=== PATIENT | female | born 1995 | race African-American/Black ===

== ENCOUNTER 2016-06-13 12:29 | Emergency (ER) | payer BC ==
[~2016-06-13] VITALS: Ht 157.5 cm; Wt 61.1 kg
[~2016-06-13 12:29] MED LIST: BCPILLS PO; PRLSR20 PO; RANI300T2 PO
[2016-06-13 12:44] VITALS: Ht 157.5 cm; Wt 61.1 kg
[2016-06-13] MEDS ORDERED: GI COCKTAIL PO STA (15:06)
[2016-06-13] MEDS ORDERED: SODIUM CHLORIDE 0.9% 1000ML 1,000 ML IV STA (15:10)
[2016-06-13] MEDS ORDERED: ALUMINUM/MAGNESIUM SUSP 30 ML UDC ONE (15:26)
[2016-06-13] MEDS ORDERED: LIDOCAINE HCL 2% VISC SOLN 20 ML UDC ONE (15:26)
[2016-06-13 15:28] LABS: BASO % 0.3 %; BASO ABS # 0.05 K/uL (0-0.2); COMPLETE YES; EOS % 0.4 %; HEMATOCRIT 42.5 % (37-47); IG% 0.4 %; LYMPH % 10.1 %; LYMPH ABS # 1.95 K/uL (1.2-3.4); MEAN CELL VOLUME 84.7 fL (80-100); MEAN CORPUSCULAR HEMOGLOBIN 28.9 pg (25-34); MEAN CORPUSCULAR HGB CONC 34.1 g/dl (32-36); MEAN PLATELET VOLUME 10.4 fL (7.4-10.4); MONO % 6.9 %; NEUT % 81.9 %; PLATELET COUNT 305 K/uL (130-400); RED BLOOD COUNT 5.02 M/uL (4.2-5.4); WHITE BLOOD COUNT 19.25 K/uL (4.8-10.8)
[2016-06-13 15:30] LABS: URINE APPEARANCE CLEAR (CLEAR); URINE BILIRUBIN NEG (NEG); URINE COLOR YELLOW; URINE NITRITE NEG (NEG); URINE PH 6.5 (4.5-7.5); URINE SPECIFIC GRAVITY 1.004 (1.000-1.030); UROBILINOGEN NEG (NEG); ZZUR CULT IF INDIC CLEAN CATCH NO
[2016-06-13 15:33] LABS: MANUAL MICROSCOPIC REQUIRED? NO; REVIEW REQ? NO
[2016-06-13 15:44] LABS: BUN/CREATININE RATIO 4.6 (10-20); CALCIUM 8.9 mg/dl (8.5-10.1); CREATININE 0.81 mg/dl (0.60-1.20); POTASSIUM 3.8 mmol/L (3.5-5.1)
[2016-06-13 15:47] LABS: ALB/GLOB RATIO 0.8 (0.9-2)
--- NOTE | 2016-06-13 15:52 | DIAGNOSTIC IMAGING REPORT ---
ABDOMEN 2VIEW W/PA CHEST RTN CLINICAL HISTORY: epigastric abdominal pain COMPARISON STUDY: January 20, 2014 FINDINGS: The erect chest reveals no evidence of free air. There is no evidence of focal pulmonary consolidation.] Erect and supine views of the abdomen reveal no abnormally dilated loops of large or small bowel. There are no transition zone to indicate bowel obstruction. IMPRESSION: No evidence of bowel obstruction. No evidence of free air. Electronically signed by: Joss Rodriguez M.D. 06/13/2016 3:50 PM Dictated Date/Time: 06/13/2016 3:50 PM
[2016-06-13] MEDS ORDERED: CETI10TA84 PO (16:06)
[2016-06-13] MEDS ORDERED: OPTIRAY 320 IV PRN (16:15)
[2016-06-13 16:30] VITALS: TEMP 37.4
--- NOTE | 2016-06-13 16:48 | DIAGNOSTIC IMAGING REPORT ---
ABDOMEN AND PELVIS CT WITH IV CONTRAST CT DOSE: 306.48 mGycm HISTORY: Pain epigastric abdominal pain, leukocytosis TECHNIQUE: Multiaxial CT images of the abdomen and pelvis were performed following the use of intravenous contrast. COMPARISON STUDY: None. FINDINGS: The lung bases are clear. The liver, spleen, gallbladder, pancreas, kidneys, and adrenal glands are within normal limits. No bowel wall thickening or obstruction. The pelvic organs are unremarkable. No suspicious lytic or blastic osseous lesions. IMPRESSION: No significant abnormality identified within the abdomen or pelvis. Electronically signed by: Geovanni Desouza M.D. 06/13/2016 4:46 PM Dictated Date/Time: 06/13/2016 4:43 PM
[2016-06-13] MEDS ORDERED: MoRPHine SULFATE 4 MG/ML 1 ML CARP\\VIAL IV STA (17:19)
[2016-06-13] MEDS ORDERED: ONDANSETRON INJ 2 MG/ML 2 ML VIAL IV STA (17:19)
[2016-06-13] MEDS ORDERED: HYDR-5688 PO (17:48)
--- NOTE | 2016-06-13 17:50 | EMERGENCY ROOM VISIT NOTE ---
History First contact with patient: 14:57 Chief Complaint: ABDOMINAL PAIN Stated Complaint: SHARP STOMACH PAIN, SWEATING, COUGHING History of Present Illness The patient is a 20 year old female who presents to the Emergency Room with complaints of sharp abdominal pains beginning last night. The patient reports that for the last few months, she has had a persistent cough at night, fullness after eating, and nausea. She was seen one week ago at [facility] and referred to the [facility] physicians group. She saw them and was prescribed Prilosec and Zantac, which she has been taking for approximately one week. She states she is scheduled for an upper endoscopy at the end of this week.. She reports that last night, she developed a sharp pain in her upper abdomen. She has had occasional vomiting, but not over the past one day. She rates her discomfort an 8/10. She states her bowel movements have been normal. The patient has a history of an appendectomy. She does report a history of occasional constipation. The patient denies any urinary symptoms, vaginal bleeding, vaginal discharge, fevers/chills, chest pain or shortness of breath. Review of Systems A complete 10-point Review of Systems was discussed with the patient, with pertinent positives and negatives listed in the History of Present Illness. All remaining Review of Systems questions can be considered negative unless otherwise specified. Past Medical/Surgical History Surgical Problems: (1) H/O wisdom tooth extraction Family History Cancer Diabetes mellitus Hypertension Social History Smoking Status: Never Smoker Alcohol Use: none Occupation Status: [employer] student Current/Historical Medications Scheduled Control Pills ( Control Pills), 1 TAB PO QPM Omeprazole (Prilosec), 20 MG PO QAM Ranitidine Hcl (Zantac), 300 MG PO HS Scheduled PRN Cetirizine (Zyrtec), 10 MG PO DAILY PRN for ALLERGIC REACTION Hydrocodone/Acetaminophen 5MG/325MG ([place] 5MG/325MG), 1-2 TABLET PO Q4H PRN for Pain Allergies Coded Allergies: No Known Allergies (Unverified , 06/09/16) Physical Exam Vital Signs Date Time Temp Pulse Resp B/P Pulse Ox O2 Delivery O2 Flow Rate FiO2 06/13/16 18:05 80 18 127/82 97 06/13/16 17:38 80 18 127/82 97 Room Air 06/13/16 16:30 37.4 90 18 140/85 98 Room Air 06/13/16 15:05 92 18 135/83 98 Room Air 06/13/16 12:44 37.4 87 18 149/88 98 Room Air Physical Exam VITALS: Vitals are noted on the nurse's note and reviewed by myself. Vital signs stable. GENERAL: This is a 20-year-old female, in no acute distress, nondiaphoretic, well-developed well-nourished. SKIN: Capillary reflex less than 2 seconds. HEENT: Normocephalic. PERRLA. EOMI. Nares patent. Mucous membranes moist. Neck is supple without nuchal rigidity. HEART: Regular rate and rhythm without murmurs gallops or rubs. LUNGS: Clear to auscultation bilaterally without wheezes, rales or rhonchi. No retractions or accessory muscle use. ABDOMEN: Positive bowel sounds x 4. Soft, nondistended with mild tenderness of the epigastric region and mid abdomen. PELVIC: Small amount of whitish vaginal discharge within the vaginal wall. No evidence of cervicitis. No cervical motion tenderness. NEURO: Patient was alert and oriented to person place and time. Medical Decision & Procedures ER Provider Diagnostic Interpretation: ABDOMEN 2VIEW W/PA CHEST RTN FINDINGS: The erect chest reveals no evidence of free air. There is no evidence of focal pulmonary consolidation.] Erect and supine views of the abdomen reveal no abnormally dilated loops of large or small bowel. There are no transition zone to indicate bowel obstruction. IMPRESSION: No evidence of bowel obstruction. No evidence of free air. ABDOMEN AND PELVIS CT WITH IV CONTRAST FINDINGS: The lung bases are clear. The liver, spleen, gallbladder, pancreas, kidneys, and adrenal glands are within normal limits. No bowel wall thickening or obstruction. The pelvic organs are unremarkable. No suspicious lytic or blastic osseous lesions. IMPRESSION: No significant abnormality identified within the abdomen or pelvis. Laboratory Results 06/13/16 15:10 Red Blood Count 5.02, Mean Corpuscular Volume 84.7, Mean Corpuscular Hemoglobin 28.9, Mean Corpuscular Hemoglobin Concent 34.1, Mean Platelet Volume 10.4, Neutrophils (%) (Auto) 81.9, Lymphocytes (%) (Auto) 10.1, Monocytes (%) (Auto) 6.9, Eosinophils (%) (Auto) 0.4, Basophils (%) (Auto) 0.3, Neutrophils # (Auto) 15.78, Lymphocytes # (Auto) 1.95, Monocytes # (Auto) 1.32, Eosinophils # (Auto) 0.07, Basophils # (Auto) 0.05 06/13/16 15:10 Test 06/13/16 15:00 06/13/16 15:10 06/13/16 17:45 Urine Color YELLOW Urine Appearance CLEAR (CLEAR) Urine pH 6.5 (4.5-7.5) Urine Specific [place] 1.004 (1.000-1.030) Urine Protein NEG (NEG) Urine Glucose (UA) NEG (NEG) Urine Ketones NEG (NEG) Urine Occult Blood NEG (NEG) Urine Nitrite NEG (NEG) Urine Bilirubin NEG (NEG) Urine Urobilinogen NEG (NEG) Urine Leukocyte Esterase NEG (NEG) Urine Test NEG (NEG) White Blood Count 19.25 K/uL (4.8-10.8) Red Blood Count 5.02 M/uL (4.2-5.4) Hemoglobin 14.5 g/dL (12.0-16.0) Hematocrit 42.5 % (37-47) Mean Corpuscular Volume 84.7 fL (80-100) Mean Corpuscular Hemoglobin 28.9 pg (25-34) Mean Corpuscular Hemoglobin Concent 34.1 g/dl (32-36) Platelet Count 305 K/uL (130-400) Mean Platelet Volume 10.4 fL (7.4-10.4) Neutrophils (%) (Auto) 81.9 % Lymphocytes (%) (Auto) 10.1 % Monocytes (%) (Auto) 6.9 % Eosinophils (%) (Auto) 0.4 % Basophils (%) (Auto) 0.3 % Neutrophils # (Auto) 15.78 K/uL (1.4-6.5) Lymphocytes # (Auto) 1.95 K/uL (1.2-3.4) Monocytes # (Auto) 1.32 K/uL (0.11-0.59) Eosinophils # (Auto) 0.07 K/uL (0-0.5) Basophils # (Auto) 0.05 K/uL (0-0.2) RDW Standard Deviation 42.5 fL (36.4-46.3) RDW Coefficient of Variation 13.8 % (11.5-14.5) Immature Granulocyte % (Auto) 0.4 % Immature Granulocyte # (Auto) 0.08 K/uL (0.00-0.02) Anion Gap 10.0 mmol/L (3-11) Est Creatinine Clear Calc Drug Dose 94.5 ml/min Estimated GFR () 120.3 Estimated GFR (Non- 103.8 BUN/Creatinine Ratio 4.6 (10-20) Calcium Level 8.9 mg/dl (8.5-10.1) Total Bilirubin 0.8 mg/dl (0.2-1) Aspartate Amino Transf (AST/SGOT) 13 U/L (15-37) Alanine Aminotransferase (ALT/SGPT) 15 U/L (12-78) Alkaline Phosphatase 84 U/L (45-117) Total Protein 8.1 gm/dl (6.4-8.2) Albumin 3.5 gm/dl (3.4-5.0) Globulin 4.6 gm/dl (2.5-4.0) Albumin/Globulin Ratio 0.8 (0.9-2) Lipase 145 U/L (73-393) Date/Time Source Procedure Growth Status 06/13/16 17:45 Vaginal Swab Trichomonas Preparation - Final Complete Medications Administered Medications (Trade) Dose Ordered Sig/Juan Manuel Route Start Time Stop Time Status Last Admin Dose Admin Miscellaneous Medication 24 ml 24 ml NOW STAT PO 06/13/16 15:06 06/13/16 15:09 DC 06/13/16 15:32 24 ML Sodium Chloride (Nss 1000ml) 1,000 ml @ 999 mls/hr Q1H1M STAT IV 06/13/16 15:10 06/13/16 16:10 DC 06/13/16 15:21 999 MLS/HR Lidocaine HCl (Viscous Lidocaine 2% Soln) 20 ml STK-MED ONCE .ROUTE 06/13/16 15:26 06/13/16 15:30 DC 06/13/16 15:32 20 ML Al Hydroxide/Mg Hydroxide (Maalox Susp) 30 ml STK-MED ONCE .ROUTE 06/13/16 15:26 06/13/16 15:30 DC 06/13/16 15:32 30 ML Morphine Sulfate (MoRPHine SULFATE INJ) 4 mg NOW STAT IV 06/13/16 17:19 3/27/17 17:21 DC 06/13/16 17:33 4 MG Ondansetron HCl (Zofran Inj) 4 mg NOW STAT IV 06/13/16 17:19 06/13/16 17:21 DC 06/13/16 17:32 4 MG Medical Decision Differential diagnosis includes cholecystitis, pancreatitis, colitis, gastroenteritis, perforated viscus, peptic ulcer disease, PID, urinary tract infection, pyelonephritis, among others. The patient was evaluated as above. Labs were drawn and IV access was obtained. Imaging studies were performed and read by radiology as above. The patient was medicated with 1 L normal saline solution, a GI cocktail and 4 mg morphine IV. The patient was reassessed multiple times during their stay in the emergency department and remained in stable condition. The patient is a 20-year-old female who presents today complaining of abdominal pain. Patient is afebrile. Labs revealed a leukocytosis of 19,000. No anemia or concerning elect avoid abnormalities. Urinalysis was not suggestive of infection. Urine was negative. Abdominal series was unremarkable. Given the patient's continued pain after a GI cocktail and leukocytosis, a CT scan was ordered. CT was performed and showed no acute findings within the abdomen. Pelvic exam was not suggestive of PID. The patient was instructed to continue Prilosec and Zantac. She did have significant relief with the morphine. She was given a short course of [place] to take at home. She was instructed to follow-up with the primary care provider within 48 hours for further evaluation. She was instructed to keep her appointment for the endoscopy. She will return for worsening of her current condition or any new/ concerning symptoms. Based on the patient's presentation, lab results, and imaging studies, I feel the patient is stable for outpatient treatment. The patient's case was reviewed with Dr. Valdivia, ED attending physician, who agreed with my assessment and treatment plan. Discharge instructions were reviewed with the patient. The patient verbalized understanding of my assessment and treatment plan and was discharged home in good condition. [place] Drug Monitoring Program Search Results: patient reviewed within database, no issues identified Impression Primary Impression: Epigastric abdominal pain Departure Information Dispostion Home / Self-Care Condition GOOD Prescriptions Hydrocodone/Acetaminophen 5MG/325MG ([place] 5MG/325MG) Tab 1-2 TABLET PO Q4H Y for Pain, #15 TAB For Initial Treatment Prov: Kemi Strauss .YOLI 06/13/16 [facility] (PCP) Patient Instructions My [facility] Additional Instructions You have been treated in the Emergency Department your Abdominal Pain. Laboratory results and imaging studies have ruled out any emergent causes for your abdominal pain which would warrant admission or surgery. You have been prescribed [place] to be used for pain control. This is a narcotic medication. You cannot drive or consume alcohol while on this medicine. This medicine should only be used for pain that cannot be controlled with over-the- counter pain medicines. Continue your medications as prescribed. For pain control, you can use the following [id number] medicines (if >12 yo): - Regular strength (325mg/tab) Tylenol (acetaminophen) 2 tabs every 4-6 hours as needed. Do not exceed 12 tablets in a 24 hour period. Avoid taking more than 4 grams (4000 mg) of Tylenol per day. This includes any other sources of acetaminophen you may take on a regular basis. Drink plenty of water and stay well hydrated. Call the [facility] physicians group tomorrow to schedule a follow-up within 24 hours. Return to the emergency department if your symptoms persist despite treatment plan outlined above or if the following symptoms occur: increased fevers, chills , worsening nausea/vomiting, blood in your stool or urine.
[2016-06-13 18:05] VITALS: BP 127/82; PULSE 80; O2SAT 97
[2016-06-15 23:03] LABS: CHLAMYDIA TRACH RNA*** NOT DETECTED (NOT DETECTED); GC (NEIS GONORRHOEAE)RNA** NOT DETECTED (NOT DETECTED)
== END 2016-06-13 18:11 | disposition home or self-care (01) ==
LOC: C.EDB 12:31 → C.EDC 18:11
DX: R10.13 Epigastric pain (principal); D72.829 Elevated white blood cell count, unspecified; Z80.9 Family history of malignant neoplasm, unspecified; Z83.3 Family history of diabetes mellitus; Z82.49 Family history of ischemic heart disease and other diseases of the circulatory system

== ENCOUNTER → 2016-06-15 | Day surgery (SDC) | payer BC ==
[2016-06-09 13:16] VITALS: BMI 23.0
[~2016-06-15] VITALS: Ht 160 cm; Wt 59.1 kg
[~2016-06-15] MED LIST changes: +CETI10TA84 PO; +HYDR-5688 PO; +LIDOCAINE HCL 2% 2 ML VIAL (20MG/ML) ONE; +PROPOFOL IV EMULSION 10 MG/ML 20 ML VIAL IV ONE; +SODIUM CHLORIDE 0.9% 500ML 500 ML IV ONE
[2016-06-15 12:15] VITALS: Ht 160 cm; Wt 59.1 kg
[2016-06-15 12:29] VITALS: TEMP 36.5
--- NOTE | 2016-06-15 13:24 | Endo History and Physical ---
History & Physical Date of Service: Jun 15, 2016. Chief Complaint: abd pain, cough, heartburn Referring Physician: [facility] History of Present Illness 20 yo AAF who presents for EGD secondary to abdominal pain, cough and heartburn. Past Surgical History Hx Cardiac Surgery: No Hx Internal Defibrillator: No Hx Pacemaker: No Hx Abdominal Surgery: Yes (APPY) Hx of Implantable Prosthesis: No Hx Post-Op Nausea and Vomiting: No Hx Cancer Surgery: No Hx Thoracic Surgery: No Hx Orthopedic: No Hx Urinary Tract Surgery: No Family History Polyp Social History Smoking Status: Never Smoker Hx Substance Use: No Hx Alcohol Use: Yes (OCCASIONAL/SOCIAL) Allergies Coded Allergies: No Known Allergies (Verified , 06/15/16) Current Medications Reported Home Medications Medications Dose Route/Sig Max Daily Dose Days Date Category Zyrtec (Cetirizine HCl) 10 Mg Tab 10 Mg PO DAILY PRN 06/13/16 Reported Zantac (Ranitidine HCl) 300 Mg Tab 300 Mg PO HS 06/09/16 Reported Prilosec (Omeprazole) 20 Mg Capcr 20 Mg PO QAM 06/09/16 Reported Control Pills (Miscellaneous) Tab 1 Tab PO QPM 04/18/15 Reported Vital Signs Weight (Kilograms): 59.09 Height (Feet): 5 Height (Inches): 3 Date Time Temp Pulse Resp B/P Pulse Ox O2 Delivery O2 Flow Rate FiO2 06/15/16 12:29 36.5 100 20 110/78 96 Room Air Physical Exam General Appearance: WD/WN, no apparent distress Respiratory/Chest: Auscultation: breath sounds normal Cardiovascular: Heart Auscultation: RRR Abdomen: Bowel Sounds: normal Inspection & Palpation: soft, non-distended, no tenderness, guarding & rebound Assessment and Plan Assessment: 20 yo AAF who presents for EGD secondary to abdominal pain, cough and heartburn. Plan: Proceed with EGD
--- NOTE | 2016-06-15 13:39 | Discharge Instructions ---
Endoscopy Patient Instructions Date / Procedure(s) Performed Jun 15, 2016. EGD Allergy Information Coded Allergies: No Known Allergies (Verified , 06/15/16) Discharge Date / Findings Jun 15, 2016. Gastric antrum biopsies Medication Instructions OK to resume all medications today as prescribed Reported Home Medications Medications Dose Route/Sig Max Daily Dose Days Date Category Zyrtec (Cetirizine HCl) 10 Mg Tab 10 Mg PO DAILY PRN 06/13/16 Reported Zantac (Ranitidine HCl) 300 Mg Tab 300 Mg PO HS 06/09/16 Reported Prilosec (Omeprazole) 20 Mg Capcr 20 Mg PO QAM 06/09/16 Reported Control Pills (Miscellaneous) Tab 1 Tab PO QPM 04/18/15 Reported Provider Instructions Activity Restrictions - No exercising or heavy lifting for 24 hours. - Do not drink alcohol the day of the procedure. - Do not drive a car or operate machinery until the day after the procedure. - Do not make any important decisions or sign important papers in 24 hours after the procedure. Following Day: - Return to full activity which may include returning to work/school. Diet Start your diet with liquids and light foods (jello, soup, juice, toast). Then eat your usual diet if not nauseated. Treatment For Common After Affects For mild abdominal pain, bloating, or excessive gas: - Rest - Eat lightly - Lie on right side Follow-Up Information Follow-up with [facility] as scheduled Anesthesia Information What You Should Know You have had a procedure that required some medicine to reduce anxiety and discomfort. This treatment is called moderate sedation. After receiving the treatment, you may be sleepy, but you will be able to breathe on your own. The effects of the treatment may last for several hours. Follow these instructions along with Activity/Diet recommendations noted above: * Do NOT do anything where dizziness or clumsiness would be dangerous. * Rest quietly at home today, then you can be up and about tomorrow. * Have a responsible person stay with you the rest of today. * You may have had an I.V. today. If so, you may take the dressing off later today. Recommendations Call your doctor if: * Trouble breathing * Continuous vomiting for more than 24 hours * Temperature above 101 degrees * Severe abdominal pain or bloating * Pain not relieved by pain medicine ordered * There is increased drainage or redness from any incision * A large amount of rectal bleeding greater than 2-3 tablespoons. (If you had a polyp/s removed or have hemorrhoids, a small amount of blood - from the rectum is to be expected.) * You have any unanswered questions or concerns. IN THE EVENT OF A SERIOUS EMERGENCY, GO TO THE NEAREST EMERGENCY ROOM Your discharge instructions were prepared by provider Jayme Hooker. Patient Instructions Signature Page Maya Crawford Patient (or Guardian) Signature/Date: I have read and understand the instructions given to me by my caregivers. Caregiver/RN/Doctor Signature/Date: The above-named patient and/or guardian has received patient instructions on this date. + Original Patient Signature Page (only) stays with chart. Please make copy for patient.
--- NOTE | 2016-06-15 13:45 | GI REPORT ---
Procedure Date: 06/15/2016 1:22 PM Procedure: Upper GI endoscopy Indications: Epigastric abdominal pain Medicines: Monitored Anesthesia Care Complications: No immediate complications. Estimated Blood Loss: Estimated blood loss: none. Procedure: Pre-Anesthesia Assessment: - Prior to the procedure, a History and Physical was performed, and patient medications and allergies were reviewed. The patient's tolerance of previous anesthesia was also reviewed. The risks and benefits of the procedure and the sedation options and risks were discussed with the patient. All questions were answered, and informed consent was obtained. Prior Anticoagulants: The patient has taken no previous anticoagulant or antiplatelet agents. ASA Grade Assessment: II - A patient with mild systemic disease. After reviewing the risks and benefits, the patient was deemed in satisfactory condition to undergo the procedure. After obtaining informed consent, the endoscope was passed under direct vision. Throughout the procedure, the patient's blood pressure, pulse, and oxygen saturations were monitored continuously. The scope was introduced through the mouth, and advanced to the second part of duodenum. The upper GI endoscopy was accomplished without difficulty. The patient tolerated the procedure well. Findings: The esophagus was normal. The entire examined stomach was normal. Biopsies were taken with a cold forceps for Helicobacter pylori testing. The examined duodenum was normal. Impression: - Normal esophagus. - Normal stomach. Biopsied. - Normal examined duodenum. Recommendation: - Resume previous diet. - Continue present medications. - Await pathology results. - Return to GI clinic as previously scheduled. Jayme Hooker DO 06/15/2016 1:43:56 PM This report has been signed electronically. Note Initiated On: 06/15/2016 1:22 PM I attest to the content of the Intraoperative Record and orders documented therein, exceptions below
--- NOTE | 2016-06-15 13:59 | Anesthesiology Progress Note ---
Anesthesia Post Op Note Date & Time Jun 15, 2016 at 13:59 Vital Signs Pain Intensity: 0 Vital Signs Past 12 Hours Date Time Temp Pulse Resp B/P Pulse Ox O2 Delivery O2 Flow Rate FiO2 06/15/16 13:52 98 18 110/73 99 Room Air 06/15/16 13:37 106 16 106/66 100 Mask 5 06/15/16 12:29 36.5 100 20 110/78 96 Room Air Notes Mental Status: alert / awake / arousable, participated in evaluation Pt Amnestic to Procedure: Yes Nausea / Vomiting: adequately controlled Pain: adequately controlled Airway Patency, RR, SpO2: stable & adequate BP & HR: stable & adequate Hydration State: stable & adequate Anesthetic Complications: no major complications apparent
[2016-06-15 14:07] VITALS: BP 112/72; PULSE 97; O2SAT 100
== END | disposition home or self-care (01) ==
LOC: C.GI 11:44
PROVIDERS: ATTEND Internal Medicine
DX: K29.60 Other gastritis without bleeding (principal); K21.9 Gastro-esophageal reflux disease without esophagitis; Z90.49 Acquired absence of other specified parts of digestive tract